=== PATIENT | female | born 1945 | race African-American/Black ===

== ENCOUNTER 2020-12-10 01:54 | Inpatient (IN) | payer MEDICARE, MEDICAID ==
[~2020-12-10] VITALS: Ht 162.6 cm; Wt 89.8 kg
[2020-12-10 03:26] LABS: HEMATOCRIT. 23.6 % (36.0-48.0); HEMOGLOBIN. 7.7 g/dL (12.0-16.0); MEAN CORPUSCULAR HEMOGLOBIN 33.3 pg (28.0-32.0); MEAN CORPUSCULAR VOLUME 101.9 fL (81.0-99.0); MEAN PLATELET VOLUME 8.8 fl (7.4-10.4); PLATELET 173 x1000/uL (130-400); RED BLOOD CELL COUNT 2.32 mill/uL (4.2-5.4); RED CELL DISTRIBUTION WIDTH 17.7 % (11.6-14.6)
[2020-12-10 03:32] LABS: PROTHROMBIN TIME 10.5 sec (9.6-11.0)
[2020-12-10 05:29] LABS: PLATELET ESTIMATE NORMAL
[2020-12-10] MEDS ORDERED: ACETAMINOPHEN 325MG TABLET PO PRN (05:45)
[2020-12-10] MEDS ORDERED: DOCUSATE SODIUM 100MG CAPSULE PO PRN (05:45)
[2020-12-10] MEDS ORDERED: HYDROCODONE/ACETAMINOPHEN 5/325MG TABLET PO PRN (05:45)
[2020-12-10] MEDS ORDERED: GUAIFENESIN 200MG/10ML SUGAR FREE UDC PO PRN (05:45)
[2020-12-10] MEDS ORDERED: DIPHENHYDRAMINE 50MG/ML VIAL IV PRN (05:45)
[2020-12-10] MEDS ORDERED: MAGNESIUM/ALUMINUM HYDROXIDE/SIMETHICONE 30ML UDC PO PRN (05:45)
[2020-12-10] MEDS ORDERED: ONDANSETRON HCL 4MG/2ML INJ IV PRN (05:45)
[2020-12-10] MEDS ORDERED: PAPAVERINE HCL 30 MG/ML 2ML IV ONE (10:32)
[2020-12-10] MEDS ORDERED: BACITRACIN 15GM TUBE TOP ONE (10:33)
[2020-12-10] MEDS ORDERED: THROMBIN (BOVINE) 5000 UNITS/VIAL TOP ONE ×2 (10:33→10:34)
[2020-12-10] MEDS ORDERED: LIDOCAINE HCL 1% 20ML VIAL (Pyxis) INJ ONE (10:33)
[2020-12-10] MEDS ORDERED: BUPIVACAINE HCL/PF 0.5% (5MG/ML) 10ML ONE (10:34)
[2020-12-10] MEDS ORDERED: HEPARIN SODIUM 1,000 UNIT/1ML VIAL IV ONE (10:34)
[2020-12-10] MEDS ORDERED: BACITRACIN 50,000 UNITS/VIAL ONE (10:34)
[2020-12-10] MEDS ORDERED: FENTANYL CITRATE/PF 50MCG/ML 2ML VIAL ONE (12:54)
[2020-12-10] MEDS ORDERED: MIDAZOLAM HCL 2 MG/2 ML VIAL ONE (12:54)
[2020-12-10] MEDS ORDERED: NEOSTIGMINE METHYLSULFATE 1MG/ML 10 ML VIAL ONE (12:54)
[2020-12-10] MEDS ORDERED: PROPOFOL 200MG/20ML VIAL IV ONE (12:54)
[2020-12-10] MEDS ORDERED: CEFAZOLIN SODIUM 1000MG/VIAL ONE (12:54)
[2020-12-10] MEDS ORDERED: SODIUM CHLORIDE 0.9% 10ML VIAL ONE (12:54)
[2020-12-10] MEDS ORDERED: ROCURONIUM BROMIDE 10MG/ML VIAL 5ML IV ONE (12:54)
[2020-12-10] MEDS ORDERED: GLYCOPYRROLATE 0.2 MG/ML 2ML VIAL ONE (12:54)
[2020-12-10] MEDS ORDERED: EPHEDRINE SULFATE 50MG/ML VIAL ONE (12:55)
[2020-12-10] MEDS ORDERED: PHENYLEPHRINE HCL 10 MG/ML 1ML (IV VIAL) IV ONE (12:55)
[2020-12-10] MEDS ORDERED: SUCCINYLCHOLINE CHLORIDE 200MG/10ML IV ONE (12:55)
[2020-12-10] MEDS ORDERED: ONDANSETRON HCL 4MG/2ML INJ ONE ×2 (12:55→14:31)
[2020-12-10] MEDS ORDERED: METOCLOPRAMIDE HCL 10MG/2ML VIAL ONE (12:55)
[2020-12-10] MEDS ORDERED: HEPARIN 5000 UNITS/ML VIAL ONE (13:43)
[2020-12-10] MEDS ORDERED: SKIN ADHESIVE 0.7 GM EA TOP ONE (14:25)
[2020-12-10] MEDS ORDERED: HYDROMORPHONE HCL/PF 2MG/ML CPJ ONE (14:29)
[2020-12-10] MEDS ORDERED: MEPERIDINE HCL/PF 25MG/ML CPJ ONE (14:30)
[2020-12-10] MEDS ORDERED: ALBUMIN HUMAN 12.5G/250ML (5%) IV ONE (15:06)
[2020-12-10] MEDS ORDERED: ALBUMIN HUMAN 25GM/500ML (5%) IV NR (16:30)
[2020-12-10 17:00] VITALS: BP 121/65
[2020-12-10 20:00] VITALS: BP 140/51
[2020-12-11] VITALS: BP 155/71
[2020-12-11 04:00] VITALS: BP 130/45
[2020-12-11 08:00] VITALS: BP 120/44
[2020-12-11 10:45] LABS: CHLORIDE 104 mEq/L (98-107)
[2020-12-11 10:46] LABS: BASOPHILS % 0.4 % (0.0-2.0); EOSINOPHILS % 0.4 % (0.0-5.0); HEMATOCRIT. 22.1 % (36.0-48.0); HEMOGLOBIN. 7.3 g/dL (12.0-16.0); LYMPHOCYTES % 13.7 % (20.0-50.0); MEAN CORPUSCULAR HEMOGLOBIN 31.4 pg (28.0-32.0); MEAN CORPUSCULAR VOLUME 95.2 fL (81.0-99.0); MEAN PLATELET VOLUME 9.7 fl (7.4-10.4); NEUTROPHILS % 75.5 % (40.0-76.0); PLATELET 85 x1000/uL (130-400); RED BLOOD CELL COUNT 2.32 mill/uL (4.2-5.4); RED CELL DISTRIBUTION WIDTH 18.7 % (11.6-14.6)
[2020-12-11] MEDS ORDERED: EPOETIN ALFA 10000UNITS/ML VIAL SUBCUT NR (15:45)
[2020-12-11 16:00] VITALS: BP 174/54
[2020-12-11] MEDS ORDERED: EPOETIN ALFA-EPBX 10,000 UNIT/ML VIAL SUBCUT NR (16:00)
[2020-12-11 18:47] LABS: HEPATITIS B SURFACE AB 339.4 mIU/mL
[2020-12-11 18:57] LABS: HEPATITIS B SURFACE ANTIGEN NEGATIVE
[2020-12-11 19:27] LABS: HEPATITIS A AB IGM NEGATIVE (NEGATIVE)
[2020-12-11 20:00] VITALS: BP 147/49
[2020-12-11] MEDS ORDERED: EPOETIN ALFA 10000UNITS/ML VIAL SUBCUT SCH (21:00)
[2020-12-12] VITALS: BP 147/50
[2020-12-12 04:00] VITALS: BP 145/52
[2020-12-12 08:00] VITALS: BP_SYST 160; BP_SYST 165; BP_DIAS 58
[2020-12-12] MEDS: CLONIDINE 0.1MG TABLET PO PRN ×3 (10:49→23:55)
[2020-12-12 12:00] VITALS: BP 169/59
[2020-12-12] MEDS: AMLODIPINE 10MG TABLET PO SCH (14:39)
[2020-12-12 16:00] VITALS: BP 160/58
[2020-12-12 20:00] VITALS: BP 169/64
[2020-12-13] VITALS: BP 164/69
[2020-12-13 04:00] VITALS: BP 150/72
[2020-12-13 06:32] LABS: BASOPHILS % 0.4 % (0.0-2.0); EOSINOPHILS % 1.9 % (0.0-5.0); HEMOGLOBIN. 8.2 g/dL (12.0-16.0); LYMPHOCYTES % 20.3 % (20.0-50.0); MEAN CORPUSCULAR VOLUME 94.9 fL (81.0-99.0); MEAN PLATELET VOLUME 8.8 fl (7.4-10.4); NEUTROPHILS % 64.4 % (40.0-76.0); PLATELET 109 x1000/uL (130-400); RED BLOOD CELL COUNT 2.64 mill/uL (4.2-5.4); RED CELL DISTRIBUTION WIDTH 18.6 % (11.6-14.6)
[2020-12-13 08:00] VITALS: BP 132/57
[2020-12-13] MEDS: AMLODIPINE 10MG TABLET PO SCH (09:00)
[2020-12-13 12:00] VITALS: BP 168/61
[2020-12-13 16:00] VITALS: BP 160/58
[2020-12-13 20:00] VITALS: BP 170/72
[2020-12-14] VITALS: BP 166/70
[2020-12-14 04:00] VITALS: BP 160/70
[2020-12-14 08:00] VITALS: BP 178/75
[2020-12-14] MEDS: AMLODIPINE 10MG TABLET PO SCH (09:07)
[2020-12-14 12:00] VITALS: BP 141/54
[2020-12-14 13:29] VITALS: BP 141/54
[2020-12-14] MEDS ORDERED: EPOETIN ALFA-EPBX 10,000 UNIT/ML VIAL SUBCUT SCH (21:00)
== END 2020-12-14 15:05 | disposition home or self-care (01) | DRG 264 ==
LOC: ER 01:54 → ORIP 05:51 → EDBEDREQTM 07:16 → EDBEDREQSVC 07:16 → 7WST 16:24
PROVIDERS: ADMIT Hospitalist; ATTEND Hospitalist
PROC: 03170JD Bypass Right Brachial Artery to Upper Arm Vein with Synthetic Substitute, Open Approach (ICD-10-PCS; principal; 2020-12-10)
PROC: 30233N1 Transfusion of Nonautologous Red Blood Cells into Peripheral Vein, Percutaneous Approach (ICD-10-PCS; 2020-12-10)
PROC: 5A1D70Z Performance of Urinary Filtration, Intermittent, Less than 6 Hours Per Day (ICD-10-PCS; 2020-12-10)
PROC: 5A1D70Z Performance of Urinary Filtration, Intermittent, Less than 6 Hours Per Day (ICD-10-PCS; 2020-12-10)
PROC: 06HY33Z Insertion of Infusion Device into Lower Vein, Percutaneous Approach (ICD-10-PCS; 2020-12-10)
PROC: B54CZZA Ultrasonography of Left Lower Extremity Veins, Guidance (ICD-10-PCS; 2020-12-10)
DX: T82.838A Hemorrhage due to vascular prosthetic devices, implants and grafts, initial encounter (principal); U07.1 COVID-19; G93.41 Metabolic encephalopathy; N18.6 End stage renal disease; I12.0 Hypertensive chronic kidney disease with stage 5 chronic kidney disease or end stage renal disease; D50.0 Iron deficiency anemia secondary to blood loss (chronic); Y84.1 Kidney dialysis as the cause of abnormal reaction of the patient, or of later complication, without mention of misadventure at the time of the procedure; Z99.2 Dependence on renal dialysis; Y92.89 Other specified places as the place of occurrence of the external cause; Z79.899 Other long term (current) drug therapy
CPT/HCPCS: 36415; 36556; 71045; 76937; 80048; 80051; 80053; 84132; 85025; 86705; 86706; 86709; 86803; 86850; 86900; 86920; 87340; 87426; 93005; 93970; 99285; C1752; C1768; C1769; J0330; J0690; J0885; J1170; J1644; J2175; J2250; J2370; J2405; J2440; J2704; J2710; J2765; J3010; J3490; J7050; P9016; P9041; U0003; A4315